=== PATIENT | female | born 1965 | race Caucasian/White ===

== ENCOUNTER 2018-01-12 13:33 | Emergency (ER) | payer OTHER ==
[2018-01-12] MEDS ORDERED: NS 1,000 ML IV ONE (13:35)
--- NOTE | 2018-01-12 13:36 | EDPHY ---
H & P Time Seen by Provider: 01/12/18 13:40 HPI/ROS: CHIEF COMPLAINT: Syncope, carpopedal spasms HISTORY OF PRESENT ILLNESS: 52-year-old female presents after a near syncopal episode with carpopedal spasms. She was at work, developed abd cramping and went to the bathroom. Abd cramping increased, associated with nausea and need to have BM. Had a normal bowel movement, began to feel lightheaded and nauseated. Sat down on the floor and did not faint. Began hyperventilating and developed carpopedal spasms. She continues to feel shaky, but feels better overall. Carpopedal spasm has resolved. No abd pain or nausea now. No recent foreign travel or known ill contact. REVIEW OF SYSTEMS: complete 10 point ROS reviewed and is negative except for the noted elements in the HPI Source: Patient - Personal History LMP (Females 10-55): Post Menopausal - Medical/Surgical History PMH: HTN, depression - Social History Smoking Status: Never smoked Alcohol Use: Sober Drug Use: None Additional Social History: - Physical Exam Exam: General Appearance: Alert, pleasant Eyes: Pupils equal and round, no conjunctival pallor or injection ENT, Mouth: Mucous membranes moist Neck: Normal inspection Respiratory: Lungs are clear to auscultation Cardiovascular: Regular rate and rhythm Gastrointestinal: Abdomen is soft and nontender Neurological: A&O, nonfocal, normal gait Skin: Warm and dry, no rash Extremities: Nontender, no pedal edema Psychiatric: slightly anxious Constitutional: Initial Vital Signs Temperature (C) 36.8 C 01/12/18 13:36 Heart Rate 62 01/12/18 13:36 Respiratory Rate 16 01/12/18 13:36 Blood Pressure 136/80 H 01/12/18 13:36 O2 Sat (%) 100 01/12/18 13:36 O2 Delivery Mode Room Air Allergies/Adverse Reactions: Sulfa (Sulfonamide Antibiotics) Allergy (Intermediate, Verified 08/19/12 16:15) Hives Home Medications: Medication Instructions Recorded Escitalopram Oxalate [Lexapro 10 10 mg PO DAILY 08/19/12 MG (RX)] oxyCODONE/APAP 5/325 [Percocet 1 tab PO Q4-6PRN PRN #20 tab 08/19/12 5/325 (*)] Lisinopril 01/12/18 Ondansetron Odt [Zofran Odt 4 mg 4 mg PO Q4 PRN #6 tab 01/12/18 (*)] Medical Decision Making - Diagnostics EKG Interpretation: EKG interpreted by me reveals normal sinus rhythm, rate 62, no ST or T segment changes. Interpretation: Normal EKG ED Course/Re-evaluation: This patient presents after a probable vasovagal episode vs panic attack related to BM. Stat EKG reveals no evidence of ischemia or dysrhythmia. Currently asymptomatic and vital signs are normal. 1500: +abd cramping, followed by diarrhea. Abdominal exam remains benign. No dizziness. Likely early gastroenteritis. Will discharge home with a prescription for Zofran. Clear liquids for 24 hr. Warning signs discussed. Differential Diagnosis: Differential diagnosis includes though is not limited to cardiac dysrhythmia, CVA, TIA, GI bleed, sepsis, hypoglycemia. - Data Points Laboratory Results: Laboratory Results 01/12/18 13:58 01/12/18 13:58 01/12/18 01/12/18 13:58 13:58 WBC 5.44 10^3/uL 10^3/uL (3.80-9.50) RBC 4.81 10^6/uL 10^6/uL (4.18-5.33) Hgb 14.7 g/dL g/dL (12.6-16.3) Hct 42.8 % % (38.0-47.0) MCV 89.0 fL fL (81.5-99.8) MCH 30.6 pg pg (27.9-34.1) MCHC 34.3 g/dL g/dL (32.4-36.7) RDW 13.3 % % (11.5-15.2) Plt Count 235 10^3/uL 10^3/uL (150-400) MPV 10.0 fL fL (8.7-11.7) Neut % (Auto) 66.4 % % (39.3-74.2) Lymph % (Auto) 26.7 % % (15.0-45.0) [place] % (Auto) 5.9 % % (4.5-13.0) Eos % (Auto) 0.4 % L % (0.6-7.6) Baso % (Auto) 0.4 % % (0.3-1.7) Nucleat RBC Rel Count 0.0 % % (0.0-0.2) Absolute Neuts (auto) 3.62 10^3/uL 10^3/uL (1.70-6.50) Absolute Lymphs (auto) 1.45 10^3/uL 10^3/uL (1.00-3.00) Absolute Monos (auto) 0.32 10^3/uL 10^3/uL (0.30-0.80) Absolute Eos (auto) 0.02 10^3/uL L 10^3/uL (0.03-0.40) Absolute Basos (auto) 0.02 10^3/uL 10^3/uL (0.02-0.10) Absolute Nucleated RBC 0.00 10^3/uL 10^3/uL (0-0.01) Immature Gran % 0.2 % % (0.0-1.1) Immature Gran # 0.01 10^3/uL 10^3/uL (0.00-0.10) Sodium 140 mEq/L mEq/L (135-145) Potassium 3.4 mEq/L mEq/L (3.3-5.0) Chloride 101 mEq/L mEq/L (97-110) Carbon Dioxide 24 mEq/l mEq/l (22-31) Anion Gap 15 mEq/L H mEq/L (6-14) BUN 12 mg/dL mg/dL (7-23) Creatinine 0.8 mg/dL mg/dL (0.6-1.0) Estimated GFR > 60 Glucose 127 mg/dL H mg/dL (70-100) Calcium 9.8 mg/dL mg/dL (8.5-10.4) Medications Given: Discontinued Medications Sodium Chloride (Ns) 1,000 mls @ 0 mls/hr IV EDNOW ONE; Wide Open PRN Reason: Protocol Stop: 01/12/18 13:36 Last Admin: 01/12/18 14:03 Dose: 1,000 mls Departure - Departure Disposition: Home, Routine, Self-Care Clinical Impression: Near syncope, Gastroenteritis Condition: Good Instructions: Near Syncope (ED), Gastroenteritis (ED) Additional Instructions: 1. Clear liquids for 24 hours. Take Zofran as needed for nausea. 2. Advance diet as tolerated. I suggest the BRAT diet to start: bananas, rice, applesauce and toast. 3. Return for worsening symptoms, persistent vomiting, abdominal pain, any concerns. Referrals: Feng Talbert DO [Doctor of Osteopathy] - As per Instructions Prescriptions: Ondansetron Odt [Zofran Odt 4 mg (*)] 4 mg PO Q4 PRN #6 tab PRN Reason: Nausea
[2018-01-12 14:07] LABS: PLATELET COUNT 235 10^3/uL (150-400)
--- NOTE | 2018-01-12 15:14 | CPEKG ---
Test Reason : OPEN Blood Pressure : / mmHG Vent. Rate : 062 BPM Atrial Rate : 062 BPM P-R Int : 138 ms QRS Dur : 087 ms QT Int : 418 ms P-R-T Axes : 036 075 061 degrees QTc Int : 425 ms Sinus rhythm Confirmed by Che Belcher ([id number]) on 01/12/2018 3:14:24 PM Referred By: Confirmed By:Che Belcher
[2018-01-12 15:33] VITALS: BP 116/74
== END 2018-01-12 15:31 | disposition home or self-care (01) ==
LOC: EDUNIT#
DX: R55 Syncope and collapse (principal); K52.9 Noninfective gastroenteritis and colitis, unspecified; E86.9 Volume depletion, unspecified; I10 Essential (primary) hypertension